=== PATIENT | male | born 1980 | race Caucasian/White ===

== ENCOUNTER 2023-08-21 13:25 | Emergency (ER) | payer SELFPAY ==
[2023-08-21 14:02] LABS: BASOPHILS ABSOLUTE AUTO 0.08 K/uL (0.00-0.20); BASOPHILS PERCENT AUTO 0.9 % (0.0-1.0); EOSINOPHILS ABSOLUTE AUTO 0.18 K/uL (0.00-0.45); HEMATOCRIT 49.1 % (42.0-52.0); HEMOGLOBIN 16.8 g/dL (14.0-18.0); IMMATURE GRAN ABSOLUTE AUTO 0.09 K/uL (0.00-0.05); LYMPHOCYTES ABSOLUTE AUTO 2.29 K/uL (1.00-4.80); LYMPHOCYTES PERCENT AUTO 25.6 % (24.0-44.0); MEAN CORPUSCULAR HEMOGLOBIN 28.4 pg (28.0-32.0); MEAN CORPUSCULAR HGB CONC 34.2 g/dL (32.0-36.0); MEAN CORPUSCULAR VOLUME 82.9 fL (83.0-99.0); MEAN PLATELET VOLUME 9.1 fL (9.4-12.4); MONOCYTES ABSOLUTE AUTO 0.56 K/uL (0.00-0.80); MONOCYTES PERCENT AUTO 6.3 % (0.0-8.0); NEUTROPHILS ABSOLUTE AUTO 5.75 K/uL (1.80-7.70); NEUTROPHILS PERCENT AUTO 64.2 % (41.0-71.0); PLATELET COUNT,PLT 223 K/uL (150-400); RED BLOOD CELL COUNT 5.92 M/uL (4.52-5.90); WHITE BLOOD CELL COUNT,WBC 8.95 K/uL (3.9-11.3)
[2023-08-21] MEDS: Aspirin 81 MG Tab.Chew PO ONE (14:06)
[2023-08-21] MEDS: Metoprolol Tartrate 5 MG/5 ML SDV IVPUSH ONE (14:06)
[2023-08-21 14:21] LABS: INR 0.96 (0.86-1.11); PTT,PARTIAL THROMBOPLSTIN TIME 30.4 SEC (23.9-30.7)
[2023-08-21 14:37] LABS: A/G RATIO 0.9 (0.9-1.6); ALANINE AMINOTRANSFERASE,ALT 81 IU/L (14-63); ALBUMIN 3.6 g/dL (3.4-5.0); ALKALINE PHOSPHATASE 97 U/L (46-116); ASPARTATE AMNIOTRANSFERASE,AST 29 IU/L (15-37); BILIRUBIN TOTAL 0.4 mg/dL (0.2-1.0); BLOOD UREA NITROGEN,BUN 14 mg/dL (7.0-18.0); CALCIUM 8.7 mg/dL (8.5-10.1); CHLORIDE,CL 106 mmol/L (98-107); CREATININE 1.2 mg/dL (0.8-1.3); EST CRCL DRUG DOSING (CG) 83.67 mL/min; GLUCOSE RANDOM 144 mg/dL (74-106); PROTEIN TOTAL,TP 7.6 g/dL (6.4-8.2); SODIUM,NA 141 mmol/L (136-148); TSH ULTRASENSITIVE 1.43 uIU/mL (0.36-3.74)
[2023-08-21 14:47] LABS: ESTIMATED GFR 76 mL/min (>60)
== END 2023-08-21 15:06 | disposition home or self-care (01) ==
LOC: MW.ED 13:25
DX: R07.89 Other chest pain (principal); R00.2 Palpitations; R55 Syncope and collapse; I10 Essential (primary) hypertension
CPT/HCPCS: 36415; 71045; 80053; 83735; 84443; 84484; 85025; 85379; 85610; 85730; 93005; 96374; 99285; A9270; J3490; 93010; 99284